=== PATIENT | male | born 1995 | race Caucasian/White ===

== ENCOUNTER 2017-10-12 21:11 | Emergency (ER) | payer OTHER ==
--- NOTE | 2017-10-12 21:29 | EDPHY ---
General Time Seen by Provider: 10/12/17 21:23 Narrative: CHIEF COMPLAINT: Chills, cold, fever, sore throat HISTORY OF PRESENT ILLNESS: Patient presents with complaints of feeling cold and sweaty, chills, fever, sore throat and anxious. He is feeling anxious because his uncle very suddenly several days ago and he has been very nervous about this. He has felt sweaty, chills, fever, mild headache and sore throat. He has had no neck pain or stiffness. No chest pain or cough, abdominal pain or urinary complaints. No rash. No recent travel or exposures known illness. He was concerned about drinking too much water because of his uncle's , which she feels is related to this, as he did not drink much water today. No radiating complaints. He has no other associated complaints or modifying factors. REVIEW OF SYSTEMS: Ten systems reviewed and are negative unless otherwise noted in the HPI PCP: [facility] SPECIALISTS: None PAST MEDICAL HISTORY: Uncomplicated PAST SURGICAL HISTORY: No recent surgeries SOCIAL HISTORY: Nonsmoker. [employer] student FAMILY HISTORY: Noncontributory EXAMINATION General Appearance: Alert, no distress. Well-developed well-nourished. Nontoxic. Anxious Head: normocephalic, atraumatic Eyes: Pupils equal and round, no conjunctival pallor or injection ENT, Mouth: Mucous membranes moist. Uvula midline. There is bilateral tonsillar exudate with symmetric swelling. No hoarseness, edema. Airway widely patent Neck: Normal inspection, supple with anterior cervical lymphadenopathy. No meningismus or rigidity. Painless range of motion all planes. Respiratory: Lungs are clear to auscultation no wheezing rhonchi or crackles Cardiovascular: Tachycardic rate. Regular rhythm. No murmur. Gastrointestinal: Abdomen is soft and nontender Back: non-tender, no bony abnormalities Neurological: GCS 15. Normal mentation. A&O, nonfocal, normal gait. No pronator drift. Normal [id number]. Skin: Warm and dry, no rash no petechiae or purpura with close inspection of the palms of the hands and soles of the feet. Extremities: Nontender, no pedal edema Psychiatric: Anxious mood and affect. Fidgeting. DIFFERENTIAL DIAGNOSES: Including but not limited to infectious mononucleosis, strep pharyngitis, tonsillitis, meningitis, pneumonia, UTI, dehydration, anxiety MDM: 9:30 p.m. Fever, chills, sweating throughout the day accompanied by feeling anxious. The patient is febrile and tachycardic. He is not hypoxemic or hypotensive. He is very well-appearing and very anxious. I have ordered IV fluid laboratory studies and will re-evaluate. Case discussed with Dr. Horton 10:25 p.m. Laboratory studies revealed leukocytosis. Chemistry unremarkable. [place] and strep test are negative. I have ordered a 2nd L IV fluid and re-evaluated the patient. He now provides further information. He states that he is also very anxious because of unprotected intercourse 2-3 days ago. He says he has an appointment tomorrow morning for this but is worried about sexually transmitted infection and asking for testing. I do feel this is compounding his anxiety from its loss of his family member and will treat him empirically for this. Patient has also been evaluated by Dr. Horton 11:30 p.m. Patient re-evaluated. He has now received 2 L IV fluid, 1 mg Ativan, intramuscular Rocephin and p.o. Zithromax. His urinalysis does reveal evidence of either urinary tract infection versus sexually transmitted infection. As the gonorrhea and chlamydia will not result until tomorrow, he has elected for empiric coverage. He will be treated with an additional 500 mg of Zithromax to bring the total to 1 g. This, paired with the IM Rocephin, will cover him for both gonorrhea and chlamydia. I do feel, as does Dr. Horton, that his likely source of infection is his pharyngitis. He clinically has the appearance of strep pharyngitis. Thus I will treat him with Keflex by mouth twice daily to cover both urinary tract and pharyngeal sources. 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 He has a visually upset about this but medically feels much better. He is still febrile and his heart rate is 110-120 beats per minute. I did offer admission to the hospital but he has declined. I do feel it is reasonable as the patient is nontoxic and well-appearing despite the elevated heart rate and his fever. He has an appointment at 9:45 a.m. Tomorrow morning at [facility] that he will keep. I have requested that if he wakes feeling any worse, any neck pain or stiffness, any difficulty swallowing, any chest pain or abdominal pain that he return here rather than his primary care appointment at [facility] [place] at . He has pending gonorrhea and chlamydia test that will need to be followed up for [facility] if he wishes to do so, but he has been treated with Rocephin and Zithromax here. He is comfortable this plan and discharged home stable condition. SUPERVISION: Patient was evaluated and examined in conjunction with my secondary supervising physician as documented. We have both examined the patient. - History Smoking Status: Current some day smoker - Objective Vital Signs: Initial Vital Signs Temperature (C) 101.5 F H 10/12/17 21:13 Heart Rate 125 H 10/12/17 21:13 Respiratory Rate 18 10/12/17 21:13 Blood Pressure 126/97 H 10/12/17 21:13 O2 Sat (%) 98 10/12/17 21:13 O2 Delivery Mode Room Air Allergies/Adverse Reactions: clindamycin Allergy (Verified 10/12/17 21:16) Home Medications: Medication Instructions Recorded Albuterol Hfa Anes Only 10/12/17 Cephalexin [Keflex (*)] 500 mg PO BID #14 cap 10/12/17 Laboratory Results: Laboratory Results 10/12/17 21:40 10/12/17 21:40 10/12/17 10/12/17 10/12/17 Unknown 21:40 21:40 WBC RBC Hgb Hct MCV MCH MCHC RDW Plt Count MPV Neut % (Auto) Lymph % (Auto) [place] % (Auto) Eos % (Auto) Baso % (Auto) Nucleat RBC Rel Count Absolute Neuts (auto) Absolute Lymphs (auto) Absolute Monos (auto) Absolute Eos (auto) Absolute Basos (auto) Absolute Nucleated RBC Immature Gran % Immature Gran # Sodium Potassium Chloride Carbon Dioxide Anion Gap BUN Creatinine Estimated GFR Glucose Calcium Urine Color PALE YELLOW Urine Appearance CLEAR Urine pH 6.0 (5.0-7.5) Ur Specific [place] 1.001 L (1.002-1.030) Urine Protein NEGATIVE (NEGATIVE) Urine Ketones NEGATIVE (NEGATIVE) Urine Blood NEGATIVE (NEGATIVE) Urine Nitrate NEGATIVE (NEGATIVE) Urine Bilirubin NEGATIVE (NEGATIVE) Urine Urobilinogen NEGATIVE EU EU (0.2-1.0) Ur Leukocyte Esterase 3+ H (NEGATIVE) Urine RBC 1-3 /hpf /hpf (0-3) Urine WBC 25-50 /hpf H /hpf (0-3) Ur Epithelial Cells TRACE /lpf /lpf (NONE-1+) Urine Mucus TRACE /lpf /lpf (NONE-1+) Urine Glucose NEGATIVE (NEGATIVE) C.trachomatis RNA (TMA) Pending Monoscreen N.gonorrhoeae RNA (TMA) Pending Group A Strep Screen Group A Strep DNA Pending 10/12/17 10/12/17 10/12/17 21:40 21:40 21:40 WBC 19.03 10^3/uL H 10^3/uL (3.80-9.50) RBC 5.31 10^6/uL 10^6/uL (4.40-6.38) Hgb 16.2 g/dL g/dL (13.7-17.5) Hct 47.5 % % (40.0-51.0) MCV 89.5 fL fL (81.5-99.8) MCH 30.5 pg pg (27.9-34.1) MCHC 34.1 g/dL g/dL (32.4-36.7) RDW 12.7 % % (11.5-15.2) Plt Count 206 10^3/uL 10^3/uL (150-400) MPV 11.1 fL fL (8.7-11.7) Neut % (Auto) 84.7 % H % (39.3-74.2) Lymph % (Auto) 7.3 % L % (15.0-45.0) [place] % (Auto) 7.1 % % (4.5-13.0) Eos % (Auto) 0.1 % L % (0.6-7.6) Baso % (Auto) 0.3 % % (0.3-1.7) Nucleat RBC Rel Count 0.0 % % (0.0-0.2) Absolute Neuts (auto) 16.14 10^3/uL H 10^3/uL (1.70-6.50) Absolute Lymphs (auto) 1.38 10^3/uL 10^3/uL (1.00-3.00) Absolute Monos (auto) 1.35 10^3/uL H 10^3/uL (0.30-0.80) Absolute Eos (auto) 0.01 10^3/uL L 10^3/uL (0.03-0.40) Absolute Basos (auto) 0.05 10^3/uL 10^3/uL (0.02-0.10) Absolute Nucleated RBC 0.00 10^3/uL 10^3/uL (0-0.01) Immature Gran % 0.5 % % (0.0-1.1) Immature Gran # 0.10 10^3/uL 10^3/uL (0.00-0.10) Sodium 135 mEq/L mEq/L (135-145) Potassium 3.6 mEq/L mEq/L (3.3-5.0) Chloride 99 mEq/L mEq/L (97-110) Carbon Dioxide 27 mEq/l mEq/l (22-31) Anion Gap 9 mEq/L mEq/L (8-16) BUN 14 mg/dL mg/dL (7-23) Creatinine 1.0 mg/dL mg/dL (0.7-1.3) Estimated GFR > 60 Glucose 109 mg/dL H mg/dL (70-100) Calcium 10.2 mg/dL mg/dL (8.5-10.4) Urine Color Urine Appearance Urine pH Ur Specific [place] Urine Protein Urine Ketones Urine Blood Urine Nitrate Urine Bilirubin Urine Urobilinogen Ur Leukocyte Esterase Urine RBC Urine WBC Ur Epithelial Cells Urine Mucus Urine Glucose C.trachomatis RNA (TMA) Monoscreen NEGATIVE (NEGATIVE) N.gonorrhoeae RNA (TMA) Group A Strep Screen Group A Strep DNA 10/12/17 21:29 WBC RBC Hgb Hct MCV MCH MCHC RDW Plt Count MPV Neut % (Auto) Lymph % (Auto) [place] % (Auto) Eos % (Auto) Baso % (Auto) Nucleat RBC Rel Count Absolute Neuts (auto) Absolute Lymphs (auto) Absolute Monos (auto) Absolute Eos (auto) Absolute Basos (auto) Absolute Nucleated RBC Immature Gran % Immature Gran # Sodium Potassium Chloride Carbon Dioxide Anion Gap BUN Creatinine Estimated GFR Glucose Calcium Urine Color Urine Appearance Urine pH Ur Specific [place] Urine Protein Urine Ketones Urine Blood Urine Nitrate Urine Bilirubin Urine Urobilinogen Ur Leukocyte Esterase Urine RBC Urine WBC Ur Epithelial Cells Urine Mucus Urine Glucose C.trachomatis RNA (TMA) Monoscreen N.gonorrhoeae RNA (TMA) Group A Strep Screen NEGATIVE (NEGATIVE) Group A Strep DNA Medications Given: Discontinued Medications Acetaminophen (Tylenol) 650 mg PO EDNOW ONE Stop: 10/12/17 22:42 Last Admin: 10/12/17 22:48 Dose: 650 mg Azithromycin (Zithromax) 500 mg PO EDNOW ONE PRN Reason: Protocol Stop: 10/12/17 22:32 Last Admin: 10/12/17 22:48 Dose: 500 mg Azithromycin (Zithromax) 500 mg PO EDNOW ONE PRN Reason: Protocol Stop: 10/12/17 23:45 Last Admin: 10/12/17 23:52 Dose: 500 mg Ceftriaxone Sodium (Rocephin Im Syringe) 250 mg IM EDNOW ONE PRN Reason: Protocol Stop: 10/12/17 22:33 Last Admin: 10/12/17 23:53 Dose: 250 mg Sodium Chloride (Ns) 1,000 mls @ 0 mls/hr IV EDNOW ONE; Wide Open PRN Reason: Protocol Stop: 10/12/17 21:31 Last Admin: 10/12/17 21:46 Dose: 1,000 mls Sodium Chloride (Ns) 1,000 mls @ 0 mls/hr IV EDNOW ONE; Wide Open PRN Reason: Protocol Stop: 10/12/17 22:22 Last Admin: 10/12/17 22:47 Dose: 1,000 mls Ibuprofen (Motrin) 600 mg PO EDNOW ONE Stop: 10/12/17 21:31 Last Admin: 10/12/17 21:46 Dose: 600 mg Lorazepam (Ativan Injection) 1 mg IVP EDNOW ONE Stop: 10/12/17 22:36 Last Admin: 10/12/17 22:48 Dose: 1 mg Oxycodone/Acetaminophen (Percocet 5/325) 1 tab PO EDNOW ONE Stop: 10/12/17 23:25 Last Admin: 10/12/17 23:28 Dose: 1 tab Departure - Departure Disposition: Home, Routine, Self-Care Clinical Impression: Acute pharyngitis Qualifiers: Pharyngitis/tonsillitis etiology: unspecified etiology Qualified Code(s): J02.9 - Acute pharyngitis, unspecified UTI (urinary tract infection) Qualifiers: Urinary tract infection type: site unspecified Hematuria presence: without hematuria Qualified Code(s): N39.0 - Urinary tract infection, site not specified Condition: Good Instructions: Sexually Transmitted Diseases (ED), Safe Sex (ED), Urinary Tract Infection in Men (ED), Pharyngitis (ED) Additional Instructions: 1. Keep your appointment at 9:[address] [facility] [place] at 2. Return to emergency department for any headache, neck pain or stiffness, fever that is not response to ibuprofen and Tylenol, chest pain, difficulty breathing or swallowing or worsening symptoms overall 3. Keflex as prescribed starting tomorrow morning, twice daily for 7 days 4. Ibuprofen 600 mg every 6 to 8 hr as needed for fever or mild headache 5. Tylenol 650 mg every 6 hr as needed for fever or mild headache Referrals: Bakari Boyer MD [Medical Doctor] - As per Instructions [facility],. [Clinic] - As per Instructions (At 9:45 a.m. Without fail. Return here if you do not keep this appointment) Stand Alone Forms: School Excuse Prescriptions: Cephalexin [Keflex (*)] 500 mg PO BID #14 cap
[2017-10-12] MEDS ORDERED: NS 1,000 ML IV ONE ×2 (21:30→22:21)
[2017-10-12] MEDS ORDERED: IBUPROFEN 600 MG TAB PO ONE (21:30)
[2017-10-12 21:56] LABS: PLATELET COUNT 206 10^3/uL (150-400)
[2017-10-12] MEDS ORDERED: AZITHROMYCIN 250 MG TAB PO ONE ×2 (22:31→23:44)
[2017-10-12] MEDS ORDERED: LORazepam 2 MG/ML INJ IVP ONE (22:35)
[2017-10-12] MEDS ORDERED: ACETAMINOPHEN 325 MG TAB PO ONE (22:41)
[2017-10-12] MEDS ORDERED: OXYCODONE/APAP 5/325 TAB PO ONE (23:24)
[2017-10-13 00:27] VITALS: BP 128/70
[2017-10-13 09:06] LABS: GROUP A STREP DNA (THROAT) POSITIVE (NEGATIVE)
[2017-10-16 13:58] LABS: GC AMPLIFICATION GENPROBE NEGATIVE (NEGATIVE)
== END 2017-10-13 00:26 | disposition home or self-care (01) ==
DX: N39.0 Urinary tract infection, site not specified (principal); J02.9 Acute pharyngitis, unspecified; F17.200 Nicotine dependence, unspecified, uncomplicated; E86.9 Volume depletion, unspecified
CPT/HCPCS: 96374; J0696; J2060